=== PATIENT | female | born 1940 | race Two or more races ===

== ENCOUNTER → 2024-08-02 07:08 | Outpatient (REF) | payer MEDICARE, OTHER, SELFPAY ==
[2024-08-02] MEDS: LEXISCAN 0.4 MG IV (09:00)
[2024-08-02] MEDS: AMINOPHYLLINE 75 MG IV (09:05)
== END ==
LOC: RCS 07:08
PROVIDERS: ATTENDING PHYSICIAN Internal Medicine Cardiovascular Disease; FAMILY PHYSICIAN Nurse Practitioner Family
DX: I73.9 Peripheral vascular disease, unspecified (principal); Z01.810 Encounter for preprocedural cardiovascular examination; R06.02 Shortness of breath
CPT/HCPCS: 78452; 93017; A9500; J2785